=== PATIENT | male | born 1970 | race Caucasian/White ===

== ENCOUNTER → 2018-08-19 | Outpatient (CLI) | payer OTHER | LOC: CAT 08:08 | DX: Z13.6 Encounter for screening for cardiovascular disorders (principal); E78.00 Pure hypercholesterolemia, unspecified ==

== ENCOUNTER → 2020-11-13 | Outpatient (CLI) | payer OTHER | LOC: RAD 09:32 | PROVIDERS: ATTEND Family Medicine | DX: S43.432A Superior glenoid labrum lesion of left shoulder, initial encounter (principal); S46.812A Strain of other muscles, fascia and tendons at shoulder and upper arm level, left arm, initial encounter; M19.012 Primary osteoarthritis, left shoulder; M25.412 Effusion, left shoulder; M25.812 Other specified joint disorders, left shoulder; M75.82 Other shoulder lesions, left shoulder; X58.XXXA Exposure to other specified factors, initial encounter; Y93.89 Activity, other specified; Y92.89 Other specified places as the place of occurrence of the external cause; Y99.8 Other external cause status ==

== ENCOUNTER → 2021-04-08 | Outpatient (CLI) | payer OTHER | LOC: RAD 07:21 | PROVIDERS: ATTEND Family Medicine | DX: S22.32XA Fracture of one rib, left side, initial encounter for closed fracture (principal); J98.11 Atelectasis; J90 Pleural effusion, not elsewhere classified; X58.XXXA Exposure to other specified factors, initial encounter; Y93.89 Activity, other specified; Y92.89 Other specified places as the place of occurrence of the external cause; Y99.8 Other external cause status ==

== ENCOUNTER → 2021-11-04 | Outpatient (CLI) | payer OTHER | LOC: RAD 07:31 | PROVIDERS: ATTEND Family Medicine | DX: R05.9 Cough, unspecified (principal) ==